=== PATIENT | female | born 2000 | race Caucasian/White ===

== ENCOUNTER 2018-05-22 13:30 | Outpatient (CLI) | payer OTHER ==
[2018-05-22 20:06] VITALS: BP 114/71; PULSE 100; RESP 16; TEMP 98.7
--- NOTE | 2018-06-22 07:34 | P.MSEPDOC ---
Presenting Problems - Arrival Data Date of Arrival on Unit: 05/22/18 Time of Arrival on Unit: 13:30 Mode of Transport: Ambulatory - Complaint OB-Reason for Admission/Chief Complaint: Possible Onset of Labor Comment: pt presents to triage after having contractions since yesterday am. had DR monzon with Dr Marroquin yesterday where cervix was " 3 cm and 60%" and Dr Marroquin "stripped. membranes" yesterday. Medical History - Information : 3 Para: 1 Term: 1 : 0 Abortions: Spontaneous or Elective: 1 Number of Living Children: 1 - Gestational Age Gestational Age by ASHLEY (wks/days): 39 Weeks and 1 Days - History Comment: refused 1 hr Glucose tolerance test. pt states with her first baby she was 7 cm by the time she got to the hospital and. only pushed 15 min last time Review of Systems - Review of Systems Constitutional: No problems Breast: No problems ENT: No problems Cardiovascular: No problems Respiratory: No problems Gastrointestinal: No problems Genitourinary: No problems Musculoskeletal: No problems Neurological: No problems Skin: No problems Vital Signs - Temperature Temperature: 98.7 F Temperature Source: Oral - Pulse Right Pulse Rate: 100 - Respirations Respiratory Rate: 16 Oxygen Delivery Method: Room Air O2 Sat by Pulse Oximetry: 99 - Blood Pressure Right Arm Blood Pressure: 114/71 Blood Pressure Mean: 85 Blood Pressure Source: Automatic Cuff Medical Screen Scoring (Pre) - Cervical Exam Dilation: 1-3 cm = 1 Effacement: More than 50% = 2 Membranes: Intact - Uterine Contractions Frequency: > or = 36 weeks =2 Duration: > 40 seconds = 2 - Maternal Vital Signs Maternal Temperature: N/A Maternal Blood Pressure: N/A Signs of Preeclampsia: N/A Maternal Respirations: N/A - Pain Assessment Pain Location and Character: Abdomen Pain Scale Used: Numeric (1 - 10) Pain Intensity: 7 Pain Management Goal: 4 Pain Description: Cramping Pain Radiation Location: back Pain Frequency: every 4 min Pain Duration: 1 Pain Duration Units: Minutes Pain Behavior: Facial Grimacing Effects of Pain: none Pain Aggravating Factors: Activity Pain Interventions: Postitioning Strategies - Maternal Trauma Maternal Trauma: N/A - Assessment Baseline FHR: 125 Heart Rate - NICHD Category: Category I (Normal) = 0 NST: Reactive Position: N/A Station: N/A - Total Score Total Score (Pre): 7 - Level of Risk Level of Risk: Medium (6-9) Physician Notification (Pre) - Physician Notified Physician Notified Date: 05/22/18 Physician Notified Time: 14:15 Physician/Practitioner Notifed:: Dr Marroquin Spoke With: Dr Marroquin New Order Received: Yes - Notification Comment Comment: 1415 Dr marroquin returned call. notified pts reason for visit, regulaar contractions. she stops to breathe through, last labor history, status reactive nst cat 1, vag. exam 3cm 60 -2. orders to recheck cervix in [address] Marroquin updated by phone with vag exam 3.5 continued regular contractions that. she has to stop and breathe through. Decision to recheck cervix in 1 more hour and if. not more changed pt may go home to labor at home and return 1648 Dr Marroquin updated with no cervical change wfter 3 exams same RN. order for. discharge received Disposition - Disposition OB Disposition: Discharge to home Discharge Date: 05/22/18 Discharge Time: 16:45 I agree with the RN Medical Screening Exam: Yes Risk & Benefit of care provided described in d/c instruction: Yes Diagnosis: FALSE LABOR AT OR AFTER 37 COMPLETED WEEKS OF GESTATION
== END 2018-05-22 16:48 | disposition home or self-care (01) ==
LOC: FBPOP 13:30
PROVIDERS: ATTEND Obstetrics & Gynecology
DX: O47.1 False labor at or after 37 completed weeks of gestation (principal); Z3A.39 39 weeks gestation of pregnancy
CPT/HCPCS: 59025; G0463; 99213

== ENCOUNTER 2018-05-22 20:40 | Inpatient (IN) | payer OTHER ==
[2018-05-22] MEDS ORDERED: LIDOCAINE 0.5% (PF) 5 MG/ML (50 ML SDV) SQ PRN (20:59)
[2018-05-22] MEDS ORDERED: OXYTOCIN 10 UNIT/ML 1 ML VIAL IM PRN (20:59)
[2018-05-22] MEDS ORDERED: CARBOPROST TROMETHAMINE 250 MCG/ML 1 ML AMP IM PRN (20:59)
[2018-05-22] MEDS ORDERED: METHYLERGONOVINE 0.2 MG/ML 1 ML AMP IM PRN (20:59)
[2018-05-22] MEDS ORDERED: TERBUTALINE 1 MG/ML VIAL SQ PRN (20:59)
[2018-05-22] MEDS ORDERED: OXYTOCIN 20 UNITS/1000 ML NS 1,000 ML IV SCH (21:00)
[2018-05-22] MEDS: LACTATED RINGERS 1,000 ML IV SCH ×2 (21:00→21:56)
[2018-05-22] MEDS ORDERED: ePHEDrine SULFATE/0.9% NACL/PF 50 MG/5 ML SYRINGE IV ONE (21:20)
[2018-05-22] MEDS ORDERED: ROPIVACAINE 5MG/ML 20ML VIAL ONE (21:20)
[2018-05-22] MEDS ORDERED: fentaNYL (PF) 50 MCG/ML 5 ML AMP ONE (21:20)
[2018-05-22] MEDS ORDERED: SODIUM CHLORIDE 0.9% 100 ML BAG ONE (21:20)
[2018-05-22 21:21] LABS: Basophils % (A) 0 %; Eosinophils # (A) 0.1 k/uL (0-0.7); Eosinophils % (A) 1 %; HGB 10.6 gm/dL (11.4-16.0); Hypochromasia Slight; Lymphocytes # (A) 1.9 k/uL (1.0-4.8); Lymphocytes % (A) 17 %; MCH 25.2 pg (25.0-35.0); MCHC 32.2 g/dL (31.0-37.0); MCV 78.2 fL (80.0-100.0); Monocytes # (A) 0.6 k/uL (0-1.0); Monocytes % (A) 6 %; Neutrophils # (A) 8.7 k/uL (1.3-7.7); Neutrophils % (A) 75 %; Platelet Count 221 k/uL (150-450); RBC 4.22 m/uL (3.80-5.40); RDW 14.9 % (11.5-15.5); WBC 11.5 k/uL (4.0-11.0)
[2018-05-22 22:10] VITALS: BMI 31.6
--- NOTE | 2018-05-23 00:03 | P.HPOB ---
History of Present Illness H&P Date: 05/22/18 Chief Complaint: Labor at 39-0/7 weeks This is a 18-year-old 2 para 1001 woman with an estimated due date of based on LMP who presents in spontaneous active labor. She reports onset of contractions earlier in the day and she was monitored in triage for some time however made no cervical change. She returned several hours later in active labor jovany every 2-3 minutes and her cervix 5 cm dilated. She is therefore admitted. She reports her has been uncomplicated. She was a late transfer of care to our practice at 26 weeks. Her obstetric history is significant for a 39 week uncomplicated vaginal delivery in 2016 Laboratory data blood type A positive, antibody screen negative, rubella immune , VDRL nonreactive, hepatitis B surface antigen negative, HIV negative, gonorrhea and clinic cultures negative, varicella nonimmune, group B strep negative. Patient did not have glucose tolerance testing done. Past Medical History Past Medical History: No Reported History Additional Past Medical History / Comment(s): HX OF GALLSTONES History of Any Multi-Drug Resistant Organisms: None Reported Past Surgical History: Cholecystectomy Additional Past Surgical History / Comment(s): 2016 Past Anesthesia/Blood Transfusion Reactions: No Reported Reaction Past Psychological History: No Psychological Hx Reported Smoking Status: Never smoker Past Alcohol Use History: None Reported Past Drug Use History: None Reported - Past Family History Mother Family Medical History: No Reported History Medications and Allergies Home Medications Medication Instructions Recorded Confirmed Type Pnv,Calcium 72/Iron/Folic Acid 1 each PO DAILY 05/22/18 05/22/18 History [ Plus Tablet] Allergies Allergy/AdvReac Type Severity Reaction Status Date / Time No Known Allergies Allergy Verified 05/22/18 20:54 Exam Vital Signs Temp Pulse Resp BP Pulse Ox 05/22/18 20:59 98.1 F 97 16 121/68 98 05/22/18 20:40 98.1 F 97 16 121/68 98 Intake and Output 05/22/18 05/22/18 05/23/18 14:59 22:59 06:59 Output Total 400 Balance -400 Output: Emesis 400 Other: # Voids 0 Weight 86.183 kg Upon my initial evaluation this is a visibly gravid female who is comfortable with an epidural anesthetic. Targeted physical exam is performed. Abdomen is gravid, nontender with palpable strong contractions. Cervix is 9 cm dilating with a tense bulging bag of fluid. Artificial rupture of membranes is undertaken and clear fluid is noted. She is 9 cm, 100% effaced and vertex in the 0 station. heart tones are reassuring by external monitoring. She is jovany every 1-3 minutes spontaneously. Results Result Diagrams: 05/22/18 21:00 Abnormal Lab Results - Last 24 Hours (Table) 05/22/18 Range/Units 21:00 WBC 11.5 H (4.0-11.0) k/uL Hgb 10.6 L (11.4-16.0) gm/dL Hct 33.0 L (34.0-46.0) % MCV 78.2 L (80.0-100.0) fL Neutrophils # 8.7 H (1.3-7.7) k/uL Assessment and Plan (1) 39 weeks gestation of Current Visit: Yes Status: Acute Code(s): Z3A.39 - 39 WEEKS GESTATION OF SNOMED Code(s): 04726605 (2) Spontaneous onset of labor Current Visit: Yes Status: Acute Code(s): HYT3996 - SNOMED Code(s): 37696534 Plan: 18-year-old 2 para 1 woman admitted at 39-0/7 weeks gestation in spontaneous active labor. status is currently reassuring by external monitoring. She is group B strep negative and Rh+. Anticipate normal spontaneous vaginal delivery.
[2018-05-23] MEDS ORDERED: LANOLIN CREAM 5 GM TUBE TOPICAL PRN (00:34)
[2018-05-23] MEDS ORDERED: diphenhydrAMINE 25 MG CAP PO PRN (00:34)
[2018-05-23] MEDS ORDERED: diphenhydrAMINE 50 MG CAP PO PRN (00:34)
[2018-05-23] MEDS ORDERED: HYDROCORTISONE 2.5% RECTAL CREAM 30 GM TUBE RECTAL PRN (00:34)
[2018-05-23] MEDS ORDERED: ZOLPIDEM 5 MG TAB PO PRN (00:34)
[2018-05-23] MEDS ORDERED: BENZOCAINE/MENTHOL SPRAY 1 GM/SPRAY AEROSOL TOPICAL PRN (00:34)
[2018-05-23] MEDS ORDERED: WITCH HAZEL 1 EACH MED..PAD TOPICAL PRN (00:34)
[2018-05-23] MEDS ORDERED: diphenhydrAMINE 50 MG/ML 1 ML VIAL IVP PRN ×2 (00:34)
[2018-05-23] MEDS ORDERED: SIMETHICONE 80 MG CHEWABLE PO PRN (00:34)
--- NOTE | 2018-05-23 00:34 | P.PROBDLV ---
Vaginal Delivery Note - . Vaginal Delivery Note: Findings: Male infant in the vertex left occiput anterior position with nuchal cord 1. Port-wine stained fluid, copious, at the time of delivery. Apgars 8 at 1 minute and 9 at 5 minutes. Weight pending. Delivery summary: This is a 18-year-old 3 para 1011 woman who presented in spontaneous active labor at 39 and one sevenths weeks gestation. She had had an uncomplicated . Following admission on she received an epidural anesthetic and progressed unremarkably to 9 cm dilated. At that time she underwent artificial rupture of membranes on and initially clear fluid was noted. She rapidly progressed to complete cervical dilation. heart tones were stable during the first stage of labor. She had strong urge to push and was repositioned, prepped and draped in the modified Nuria position. With Maternal effort 1 the head delivered from the left occiput anterior position. Delivery of the head was accompanied by a large gush of port wine stained fluid. Nose and mouth were bulb suctioned. Tight nuchal cord was noted and delivered through. The rest the was delivered onto the field without difficulty and the nuchal cord was reduced. The nose and mouth were further bulb suctioned and the was placed on the maternal abdomen. Apgars were 8 at 1 minute and 9 at 5 minutes. The cord was clamped and cut and the was taken to the warmer. An intact, three-vessel cord placenta was delivered rapidly after delivery of the baby. Inspection of the placenta revealed dark adherent clot to approximately one third of the maternal surface. The uterus was massaged and was noted to be firm and the patient received Pitocin following delivery of the placenta. The perineum and cervix were inspected and no lacerations were noted. All counts were correct. EBL approximately 100 mL's. Placenta will be sent for pathology evaluation due to suspected placental abruption. All counts were correct.
[2018-05-23] MEDS ORDERED: OXYTOCIN 20 UNITS/1000 ML NS 1,000 ML IV SCH (00:45)
[2018-05-23] MEDS: IBUPROFEN 600 MG TAB PO PRN ×2 (07:14→16:05)
[2018-05-23] MEDS: SENNOSIDES-DOCUSATE SODIUM 1 EACH TAB PO SCH ×2 (10:23→19:43)
[2018-05-23] MEDS: ACETAMINOPHEN TAB 325 MG TAB PO PRN ×2 (10:42→20:02)
[2018-05-24] MEDS: IBUPROFEN 600 MG TAB PO PRN ×2 (01:18→07:47)
[2018-05-24] MEDS: SENNOSIDES-DOCUSATE SODIUM 1 EACH TAB PO SCH (01:18)
--- NOTE | 2018-05-24 07:20 | P.DS ---
Providers Date of admission: 05/22/18 20:50 Expected date of discharge: 05/24/18 Attending physician: Анна Marroquin Primary care physician: Stated None Hospital Course: This is a 18-year-old white female 3 para 1011 EDC 05/28/2018 at 39 and one sevenths weeks' gestation. Patient presented in active spontaneous labor. Her was unremarkable, blood type A+, rubella status immune, group B strep cultures negative. Please see dictated history and physical for details. Artificial amniorrhexis revealed clear fluid. Epidural was placed per her request. She went on to deliver a liveborn male infant with scores of 8 and 9 at one and 5 minutes respectively. weight 8 lbs. 1 oz. or 3660 g. Upon delivery of the fetus, a large gush of bloody fluid was noted, suspicious for abruption. For this reason the placenta was sent to pathology for evaluation. Please see dictated delivery note for details. This morning the patient is doing well. She is voiding, ambulating and passing flatus without difficulty. Vital signs are stable and she is afebrile. Fundus is firm and in the midline, symmetric and 18 week size. Extremities are negative for edema. Breasts are not engorged. Perineal body is clean and dry. circumcision is being performed this morning. Patient is being discharged home in very good condition. She will follow-up with me in the office in 6 weeks. I have reminded her no intercourse, tampons or douching. She will use [id number] Advil or Aleve products as needed for pain. She will call with any fevers shakes or chills, foul smelling or copious lochia, with the passage of large blood clots, with any pain not alleviated by [id number] products, or indeed with any concerns. Patient Condition at Discharge: Good Plan - Discharge Summary Discharge Rx Participant: No New Discharge Prescriptions: No Action Pnv,Calcium 72/Iron/Folic Acid [ Plus Tablet] 1 each PO DAILY Discharge Medication List Pnv,Calcium 72/Iron/Folic Acid [ Plus Tablet] 1 each PO DAILY 05/22/18 [ History] Follow up Appointment(s)/Referral(s): Анна Marroquin MD [STAFF PHYSICIAN] - 6 Weeks Discharge Disposition: HOME SELF-CARE
[2018-05-24 07:55] LABS: Basophils % (A) 0 %; Eosinophils # (A) 0.1 k/uL (0-0.7); Eosinophils % (A) 1 %; HCT 35.6 % (34.0-46.0); HGB 10.8 gm/dL (11.4-16.0); Hypochromasia Marked; Lymphocytes # (A) 1.6 k/uL (1.0-4.8); Lymphocytes % (A) 13 %; MCH 24.8 pg (25.0-35.0); MCHC 30.2 g/dL (31.0-37.0); MCV 82.1 fL (80.0-100.0); Mean Platelet Volume 9.9; Monocytes # (A) 0.6 k/uL (0-1.0); Monocytes % (A) 5 %; Neutrophils # (A) 9.8 k/uL (1.3-7.7); Neutrophils % (A) 79 %; Platelet Count 219 k/uL (150-450); RBC 4.34 m/uL (3.80-5.40); RDW 14.8 % (11.5-15.5); WBC 12.3 k/uL (4.0-11.0)
[2018-05-24 08:38] VITALS: BP 109/66; PULSE 101; RESP 16; TEMP 98.3
== END 2018-05-24 11:00 | disposition home or self-care (01) | DRG 807 ==
LOC: FBPOP 20:40 → 4FBP 20:50
PROVIDERS: ADMIT Obstetrics & Gynecology; ATTEND Obstetrics & Gynecology
PROC: 10E0XZZ Delivery of Products of Conception, External Approach (ICD-10-PCS; principal; 2018-05-23)
PROC: 00HU33Z Insertion of Infusion Device into Spinal Canal, Percutaneous Approach (ICD-10-PCS; 2018-05-23)
PROC: 3E0R3BZ Introduction of Anesthetic Agent into Spinal Canal, Percutaneous Approach (ICD-10-PCS; 2018-05-23)
DX: O69.1XX0 Labor and delivery complicated by cord around neck, with compression, not applicable or unspecified (principal); Z37.0 Single live birth; Z3A.39 39 weeks gestation of pregnancy; Z90.49 Acquired absence of other specified parts of digestive tract
CPT/HCPCS: 59025; 85025; 86850; 86900; 86901; 88307; 99213

== ENCOUNTER → 2019-10-07 | Outpatient (CLI) | payer BC, OTHER ==
--- NOTE | 2019-10-08 12:54 | ECHOF ---
Referral Reason:R06.02 Shortness of breath MEASUREMENTS -------- HEIGHT: 165.1 cm WEIGHT: 69.9 kg BP: IVSd: 0.9 cm (0.6 - 1.1) LVIDd: 4.6 cm (3.9 - 5.3) LVPWd: 1.0 cm (0.6 - 1.1) IVSs: 1.2 cm LVIDs: 2.7 cm LVPWs: 1.6 cm RVIDd: 2.5 cm (< 3.3) LAESV Index (A-L): 17.53 ml/m Ao Diam: 2.8 cm (2.0 - 3.7) LA Diam: 2.7 cm (2.7 - 3.8) AV Cusp: 1.9 cm (1.5 - 2.6) EPSS: 0.6 cm MV E Eitan: 0.79 m/s MV DecT: 301 ms MV A Eitan: 0.53 m/s MV E/A Ratio: 1.48 RAP: 5.00 mmHg RVSP: 22.48 mmHg %FS: 30.06 % EDV(Teich): 92.94 ml EF(Teich): 57.43 % ESV(Teich): 39.56 ml IVSd: 1.12 cm (0.6 - 1.1) IVSs: 1.28 cm LVIDd: 4.51 cm (3.9 - 5.3) LVIDs: 3.15 cm LVPWd: 1.23 cm (0.6 - 1.1) LVPWs: 1.51 cm MV EF SLOPE: 126.95 mm/s (70 - 150) MV EXCURSION: 14.06 mm (> 18.000) SV(Teich): 53.38 ml FINDINGS -------- Sinus rhythm. This was a technically adequate study. The left ventricular size is normal. Left ventricular wall thickness is normal. Overall left vent ricular systolic function is normal with, an EF between 55 - 60 %. The diastolic filling pattern is normal for the age of the patient 6.11. The right ventricle is normal in size. Normal LA size by volume 22+/-6 ml/m2. The right atrial size is normal. Interatrial and interventricular septum intact. The aortic valve is trileaflet and appears structurally normal. There is no evidence of aortic regu rgitation. There is no evidence of aortic stenosis. No mitral regurgitation. Mild tricuspid regurgitation present. There is no evidence of pulmonary hypertension. The right v entricular systolic pressure, as measured by Doppler, is 22.48mmHg. There is no pulmonic regurgitation present. The aortic root size is normal. Normal inferior vena cava with normal inspiratory collapse consistent with estimated right atrial pre ssure of 5 mmHg. There is no pericardial effusion. CONCLUSIONS -------- 1. Sinus rhythm. 2. This was a technically adequate study. 3. The left ventricular size is normal. 4. Left ventricular wall thickness is normal. 5. Overall left ventricular systolic function is normal with, an EF between 55 - 60 %. 6. The diastolic filling pattern is normal for the age of the patient 6.11 7. The right ventricle is normal in size. 8. Normal LA size by volume 22+/-6 ml/m2. 9. The right atrial size is normal. 10. Interatrial and interventricular septum intact. 11. The aortic valve is trileaflet and appears structurally normal. 12. There is no evidence of aortic regurgitation. 13. There is no evidence of aortic stenosis. 14. No mitral regurgitation. 15. Mild tricuspid regurgitation present. 16. There is no evidence of pulmonary hypertension. 17. The right ventricular systolic pressure, as measured by Doppler, is 22.48mmHg. 18. There is no pulmonic regurgitation present. 19. The aortic root size is normal. 20. Normal inferior vena cava with normal inspiratory collapse consistent with estimated right atrial pressure of 5 mmHg. 21. There is no pericardial effusion. ACTUARY CLERK: Gabi Diaz [facility]
== END | disposition home or self-care (01) ==
LOC: RADECHMAIN 16:15
PROVIDERS: ATTEND Internal Medicine
DX: I07.1 Rheumatic tricuspid insufficiency (principal)
CPT/HCPCS: 93306

== ENCOUNTER → 2020-11-09 | Outpatient (CLI) | payer BC, OTHER ==
--- NOTE | 2020-11-09 15:51 | XR ---
Right ankle HISTORY: Right ankle pain, trauma 2 views of the right ankle There is soft tissue swelling present. Bone mineralization, joint spaces and alignment are maintained . IMPRESSION: No fracture or dislocation.
== END | disposition home or self-care (01) ==
LOC: RADXRMAIN 10:30
PROVIDERS: ATTEND Internal Medicine
DX: M25.571 Pain in right ankle and joints of right foot (principal)

== ENCOUNTER → 2020-12-15 | Outpatient (CLI) | payer BC, OTHER ==
--- NOTE | 2020-12-16 07:53 | USB ---
Reason for exam: clinical finding. Indicated problem(s): lump or thickening and pain in both breasts. Non-bloody discharge in the right breast. Physical Findings: Nurse Summary: Patient complains of bilateral breast lumps x 2 weeks, breast pain, right nipple discharge with compression (nurse mj). US Breast BILAT Right complete breast ultrasound includes all four quadrants, the retroareolar region and axilla. Finding demonstrates a 0.6 x 0.6 x 0.2cm lymph node at 10 o'clock, duct ectasia at the posterior nipple and a 1.9 x 1.5 x 1.0cm lymph node at the axilla. Left complete breast ultrasound includes all four quadrants, the retroareolar region and axilla. Finding demonstrates a 1.4 x 1.6 x 1.4cm lymph node at the axilla. These results were verbally communicated with the patient and result sheet given to the patient on 12/15/20. ASSESSMENT: Benign, BI-RAD 2 RECOMMENDATION: Routine screening mammogram of both breasts at age 38. Manage patient on a clinical basis.
== END | disposition home or self-care (01) ==
LOC: RADUSWWP 14:56
PROVIDERS: ATTEND Obstetrics & Gynecology
DX: N63.20 Unspecified lump in the left breast, unspecified quadrant (principal); N63.10 Unspecified lump in the right breast, unspecified quadrant